=== PATIENT | female | born 1945 | race Hispanic/Latino ===

== ENCOUNTER 2020-02-22 14:38 | Inpatient (IN) | payer OTHER ==
[~2020-02-22] VITALS: Ht 162.6 cm; Wt 62.6 kg
[~2020-02-22 14:38] MED LIST: ALENDRONATE SOD70 MG PO; DIGOXIN125 MCG PO; FUROSEMIDE40 MG PO; GLYBURIDE2.5 MG PO; LISINOPRIL10 MG PO; LOVENOX40 MG/0.4 SQ; WARFARIN SODIUM5 MG PO
[2020-02-22] MEDS ORDERED: DILTIAZEM HCL 5 MG/ML 5 ML VIAL IV ONE (16:30)
[2020-02-22 16:46] LABS: BASOPHILS % 0.7 % (0.0-1.0); EOSINOPHILS # (AUTO) 0.2 (0.0-0.4); HEMATOCRIT 23.3 % (34.2-44.1); HEMOGLOBIN 7.3 g/dL (12.0-16.0); LYMPHOCYTES # (AUTO) 0.7 (1.0-3.2); LYMPHOCYTES % 15.2 % (18.0-39.1); MEAN CORPUSCULAR HEMOGLOBIN 29.8 pg (28-32); MEAN CORPUSCULAR HGB CONC 31.3 g/dL (31-35); MEAN CORPUSCULAR VOLUME 95.1 fL (81-99); MONOCYTES # (AUTO) 0.5 (0.2-0.8); MONOCYTES % 10.8 % (4.4-11.3); NEUTROPHILS # (AUTO) 3.1 (2.1-6.9); NEUTROPHILS % 68.9 % (38.7-80.0); PLATELET COUNT 277 x10e3/uL (140-360); RED BLOOD COUNT 2.45 x10e6/uL (3.6-5.1)
[2020-02-22 16:53] LABS: ALBUMIN 3.7 g/dL (3.5-5.0); ALBUMIN/GLOBULIN RATIO 0.9 (0.8-2.0); ANION GAP 14.5 mmol/L (8-16); CALCIUM 9.6 mg/dL (8.4-10.2); CREATININE, SERUM 1.51 mg/dL (0.57-1.11); POTASSIUM 4.5 mmol/L (3.5-5.1)
[2020-02-22 17:22] LABS: PROTHROMBIN TIME 96.1 seconds (11.9-14.5)
[2020-02-22 17:23] LABS: INR 11.2
[2020-02-22] MEDS ORDERED: PHYTONADIONE 10 MG/ML AMP SQ ONE (17:30)
--- NOTE | 2020-02-22 18:04 | Emergency Department Note ---
History of Present Illnes History of Present Illness Chief Complaint: General Medicine Complaints History of Present Illness This is a 74 year old female . Chief Complaint Comment went to see pcp who did lab work and told her that her pt/inr was 9 and her blood was thin and sent pt to er for further eval pt c/o swelling to right lower leg presents with +1 edema to right lowre leg pedal pulse palpable and c/o pain to left lower back unknown origing denies dysuria/hematuria during triage pt hr goes between 120-150's ekg done shows a fib rvr md made aware seen by dr vera Historian: Patient Arrival Mode: Car Onset (how long ago): unknown Severity: mild Onset quality: unable to specify Duration (how long): day(s) Timing of current episode: constant Progression: other Chronicity: new Relieving factors: none Exacerbating factors: none Past Medical/Family History Physician Review I have reviewed the patient's past medical and family history. Any updates have been documented here. Past Medical History Recent Fever: No Clinical Suspicion of Infectio: No New/Unexplained Change in Ment: No Past Medical History: Hypertension, A-Fib Other Medical History: cirrhosis Past Surgical History: Pacer/AICD Social History Smoking Cessation: Never Smoker Counseling Performed: No Alcohol Use: None Any Illegal Drug Use: No Other Any Pre-Existing Lines (PICC,: No Review of Systems Review of Systems Constitutional: Reports as per HPI EENTM: Reports no symptoms Cardiovascular: Reports as per HPI, Reports chest pain Respiratory: Reports no symptoms Gastrointestinal: Reports no symptoms Genitourinary: Reports no symptoms Musculoskeletal: Reports no symptoms Integumentary: Reports no symptoms Neurological: Reports no symptoms Psychological: Reports no symptoms Endocrine: Reports no symptoms Hematological/Lymphatic: Reports no symptoms Physical Exam Related Data Allergies: Coded Allergies: No Known Allergies (Unverified , 08/31/12) Triage Vital Signs Vital Signs Date Time Temp Pulse Resp B/P (MAP) Pulse Ox O2 Delivery O2 Flow Rate FiO2 02/22/20 15:05 98.2 123 18 135/84 99 Room Air Vital signs reviewed: Yes Physical Exam CONSTITUTIONAL Constitutional: Present well-developed, Present well-nourished, Present obese HENT HENT: Present normocephalic, Present atraumatic, Present oropharynx clear/moist, Present nose normal HENT L/R: Present left ext ear normal, Present right ext ear normal EYES Eyes: Reports PERRL, Reports conjunctivae normal NECK Neck: Present ROM normal PULMONARY Pulmonary: Present effort normal, Present breath sounds normal CARDIOVASCULAR Cardiovascular: Present regular rhythm, Present heart sounds normal, Present capillary refill normal, Present normal rate GASTROINTESTINAL Abdominal: Present soft, Present nontender, Present bowel sounds normal GENITOURINARY Genitourinary: Present exam deferred SKIN Skin: Present warm, Present dry MUSCULOSKELETAL Musculoskeletal: Present ROM normal NEUROLOGICAL Neurological: Present alert, Present oriented x 3, Present no gross motor or sensory deficits PSYCHOLOGICAL Psychological: Present mood/affect normal, Present judgement normal Results Laboratory Result Diagram: 02/22/20 1530 02/22/20 1530 Laboratory Laboratory Tests Test 02/22/20 15:30 White Blood Count 4.46 x10e3/uL (4.8-10.8) Red Blood Count 2.45 x10e6/uL (3.6-5.1) Hemoglobin 7.3 g/dL (12.0-16.0) Hematocrit 23.3 % (34.2-44.1) Mean Corpuscular Volume 95.1 fL (81-99) Mean Corpuscular Hemoglobin 29.8 pg (28-32) Mean Corpuscular Hemoglobin Concent 31.3 g/dL (31-35) Red Cell Distribution Width 13.0 % (11.7-14.4) Platelet Count 277 x10e3/uL (140-360) Neutrophils (%) (Auto) 68.9 % (38.7-80.0) Lymphocytes (%) (Auto) 15.2 % (18.0-39.1) Monocytes (%) (Auto) 10.8 % (4.4-11.3) Eosinophils (%) (Auto) 4.0 % (0.0-6.0) Basophils (%) (Auto) 0.7 % (0.0-1.0) Neutrophils # (Auto) 3.1 (2.1-6.9) Lymphocytes # (Auto) 0.7 (1.0-3.2) Monocytes # (Auto) 0.5 (0.2-0.8) Eosinophils # (Auto) 0.2 (0.0-0.4) Basophils # (Auto) 0.0 (0.0-0.1) Absolute Immature Granulocyte (auto 0.02 x10e3/uL (0-0.1) Prothrombin Time 96.1 seconds (11.9-14.5) Prothromb Time International Ratio 11.20 Sodium Level 136 mmol/L (136-145) Potassium Level 4.5 mmol/L (3.5-5.1) Chloride Level 101 mmol/L (98-107) Carbon Dioxide Level 25 mmol/L (22-29) Anion Gap 14.5 mmol/L (8-16) Blood Urea Nitrogen 33 mg/dL (7-26) Creatinine 1.51 mg/dL (0.57-1.11) Estimat Glomerular Filtration Rate 34 ML/MIN (60-) BUN/Creatinine Ratio 22 (6-25) Glucose Level 95 mg/dL (74-118) Calcium Level 9.6 mg/dL (8.4-10.2) Total Bilirubin 0.6 mg/dL (0.2-1.2) Aspartate Amino Transf (AST/SGOT) 19 IU/L (5-34) Alanine Aminotransferase (ALT/SGPT) 14 IU/L (0-55) Alkaline Phosphatase 141 IU/L (40-150) Total Protein 7.6 g/dL (6.5-8.1) Albumin 3.7 g/dL (3.5-5.0) Globulin 3.9 g/dL (2.3-3.5) Albumin/Globulin Ratio 0.9 (0.8-2.0) Lab results reviewed: Yes Imaging Imaging results reviewed: Yes Procedures 12 Lead ECG Interpretation ECG Interpretation : ECG: ECG 1 Prior ECG tracings: reviewed Rhythm: atrial fibrillation QRS axis: normal ST segments normal: Yes Clinical Impression: abnormal ECG Critical Care Time Total Critical Care Time (min): 65 Critical care time exclusive o: separately billable procedures Critcal care necessary due to: metabolic failure, other (supratherapeutic INR) Assessment & Plan Medical Decision Making MDM 74-year-old female brought to the ED with elevated INR, patient's INR around 11, hemoglobin low, vitamin K and FFP given. Patient required hospital admission for further workup and management. Assessment & Plan Final Impression: (1) Thrombocytopenia (2) Supratherapeutic INR Depart Disposition: ADMITTED Last Vital Signs Date Time Temp Pulse Resp B/P (MAP) Pulse Ox O2 Delivery O2 Flow Rate FiO2 7/30/20 17:47 78 16 142/81 99 Room Air 02/22/20 15:05 98.2 Home Meds Reported Medications Enoxaparin Sodium (LOVENOX) 40 Mg/0.4 Ml Inj, 40 MG SQ BID 09/01/12 Warfarin Sodium (COUMADIN) 5 Mg Tablet, 5 MG PO 08/31/12 Lisinopril (LISINOPRIL) 10 Mg Tablet, 10 MG PO DAILY 08/31/12 Glyburide (GLYBURIDE) 2.5 Mg Tablet, 2.5 MG PO DAILY 08/31/12 Furosemide (FUROSEMIDE) 40 Mg Tablet, 40 MG PO DAILY 08/31/12 Digoxin (DIGOXIN) 125 Mcg Tablet, 125 MCG PO DAILY 08/31/12 Alendronate Sodium (ALENDRONATE SODIUM) 70 Mg Tablet, 70 MG PO W 08/31/12 Medications in the ED Diltiazem HCl 20 mg ONCE ONCE IV Last administered on 02/22/20at 16:41; Admin Dose 20 MG; Start 02/22/20 at 16:30; Stop 02/22/20 at 16:31; Status DC Phytonadione 10 mg ONCE ONCE SQ Last administered on 02/22/20at 17:39; Admin Dose 10 MG; Start 02/22/20 at 17:30; Stop 02/22/20 at 17:31; Status DC JOSE ANGEL VERA DO Feb 22, 2020 18:04
--- NOTE | 2020-02-22 22:15 | NUR ---
PT SIGNED INFORMED CONSENT, DOCUMENT PLACED ON CHART.
[2020-02-22] MEDS ORDERED: FAMOTIDINE 20 MG/2 ML VIAL IV STA (23:07)
[2020-02-22] MEDS ORDERED: METOPROLOL TARTRATE INJ 1 MG/ML VIAL IV PRN (23:15)
[2020-02-22] MEDS ORDERED: DEXTROSE 50% SYRINGE 50 ML IV PRN (23:15)
[2020-02-22] MEDS ORDERED: DIGOXIN 0.125 MG TAB PO SCH (23:15)
[2020-02-22] MEDS ORDERED: HYDRALAZINE HCL 20 MG/ML VIAL IV PRN (23:15)
[2020-02-22] MEDS ORDERED: SODIUM CHLORIDE 0.9% 250ML 250 ML ONE (23:30)
[2020-02-23] VITALS (9 sets, daily range): BP systolic 118–139; BP diastolic 49–76
--- NOTE | 2020-02-23 00:01 | NUR ---
FIRST BAG FFP COMPLETED, PT TOLERATED WELL.
--- NOTE | 2020-02-23 01:16 | NUR ---
SECOND BAG COMPLETE, NAD.
--- NOTE | 2020-02-23 02:18 | NUR ---
Received patient via wheelchair from ER. AAOx4. Understands some [place] but prefers [place]. Resp. even and unlabored. Skin warm and dry to touch. IV to lt forearm 18g clean, dry and intact.Denies any pain/discomfort at this time.
[2020-02-23] MEDS ORDERED: BACTRIM DS TAB1 EACH PO (02:37)
[2020-02-23] MEDS ORDERED: SODIUM CHLORIDE 0.9% 250ML 250 ML ONE (04:12)
--- NOTE | 2020-02-23 07:00 | NUR ---
RECEIVED CHANGE OF SHIFT REPORT FROM SHOOK SPLICER RN. NOTED PLASMA INFUSION JUST COMPLETED. INFORMED BY RN PT TO RECEIVE ONE MORE BAG OF PLASMA. PT AWAKE, ALERT, NO SIGNS OF DISTRESS, AMBULATING TO BATHROOM WITHOUT DIFFICULTY. WILL CONTINUE TO MONITOR.
[2020-02-23] MEDS: INSULIN LISPRO 100 UNIT/1 ML 3ML VIAL SQ SCH ×4 (07:30→21:00)
[2020-02-23] MEDS ORDERED: FAMOTIDINE 20 MG/2 ML VIAL IV SCH (09:00)
[2020-02-23 09:02] LABS: BASOPHILS % 0.6 % (0.0-1.0); EOSINOPHILS # (AUTO) 0.2 (0.0-0.4); EOSINOPHILS % 4.8 % (0.0-6.0); LYMPHOCYTES # (AUTO) 0.4 (1.0-3.2); LYMPHOCYTES % 11.4 % (18.0-39.1); MEAN CORPUSCULAR HEMOGLOBIN 29.6 pg (28-32); MEAN CORPUSCULAR HGB CONC 31.1 g/dL (31-35); MEAN CORPUSCULAR VOLUME 95.4 fL (81-99); MONOCYTES # (AUTO) 0.4 (0.2-0.8); MONOCYTES % 12.6 % (4.4-11.3); NEUTROPHILS # (AUTO) 2.4 (2.1-6.9); NEUTROPHILS % 70.3 % (38.7-80.0); PLATELET COUNT 211 x10e3/uL (140-360); RED BLOOD COUNT 2.16 x10e6/uL (3.6-5.1); RED CELL DISTRIBUTION WIDTH 13.1 % (11.7-14.4)
[2020-02-23 09:25] LABS: ALBUMIN 3.5 g/dL (3.5-5.0); ALBUMIN/GLOBULIN RATIO 0.9 (0.8-2.0); ANION GAP 13.4 mmol/L (8-16); CALCIUM 9.4 mg/dL (8.4-10.2); CREATININE, SERUM 1.4 mg/dL (0.57-1.11); HEMATOCRIT 20.6 % (34.2-44.1); HEMOGLOBIN 6.4 g/dL (12.0-16.0); POTASSIUM 4.4 mmol/L (3.5-5.1)
--- NOTE | 2020-02-23 09:31 | NUR ---
spoke with Dr. Weeks regarding critical value of Hgb at 6.4; no new orders received. Dr. Weeks states he will come examine the pt. will continue to monitor.
[2020-02-23] MEDS: FUROSEMIDE 40 MG TAB PO SCH (09:33)
[2020-02-23] MEDS: DIGOXIN 0.125 MG TAB PO SCH (09:33)
[2020-02-23 10:12] LABS: THYROID STIMULATING HORMONE 1.104 uIU/mL (0.350-4.940)
[2020-02-23] MEDS ORDERED: ACETAMINOPHEN 325 MG TAB PO ONE (11:10)
[2020-02-23] MEDS ORDERED: SODIUM CHLORIDE 0.9% 250ML 250 ML IV ONE (11:15)
--- NOTE | 2020-02-23 11:19 | History and Physical ---
PRIMARY CARE PHYSICIAN: Molina Mccall MD. CHIEF COMPLAINT: Supratherapeutic INR level of 11.2. Melena. Upper GI bleed. HISTORY OF PRESENT ILLNESS: The patient is a 74-year-old female with atrial fibrillation, on warfarin 5 mg daily. Apparently, her INR is very elevated, came to the hospital after primary care physician checked the blood work. Her INR is 11.2. The patient does have melena. Her hemoglobin and hematocrit were 7.3 and 23.3. They came down to 6.4 and 20.6 today. The patient is otherwise stable. She does not have increasing shortness of breath at this time. Does have some palpitation, but otherwise stable. The patient did receive her FFP. She is pending for blood transfusion. Her manager pricing is Dr. Glass. PAST MEDICAL HISTORY: Atrial fibrillation, hypertension, anticoagulant therapy, diabetes type 2, dyslipidemia, osteoporosis, and recent right lower extremity cellulitis, started on Bactrim. ALLERGIES: NO KNOWN ALLERGIES. PHYSICAL EXAMINATION: VITAL SIGNS: Temperature is 97, blood pressure 133/70, pulse rate is 77, respirations 18. GENERAL: The patient is not in acute distress, awake. HEENT: Normocephalic, atraumatic. Anicteric. NECK: Supple grossly. PULMONARY: Diminished breath sounds. CARDIOVASCULAR: Atrial fibrillation, rate control. ABDOMEN: Soft. EXTREMITIES: No cyanosis or edema. NEUROLOGIC: No focal deficit. LABORATORY DATA: Hemoglobin and hematocrit of 6.4 and 20.6. Platelet is 211. Chemistry panel, BUN and creatinine of 29 and 1.4. Sodium is 140, potassium 4.4, chloride 103, bicarb 28. ASSESSMENT AND PLAN: 1. Melena secondary to supratherapeutic INR. 2. Upper GI bleed as mentioned above. 3. Acute blood loss anemia. 4. Atrial fibrillation, on anticoagulant therapy. 5. Hypertension. 6. Dyslipidemia. 7. Diabetes type 2. PLAN: Consultation with Dr. Glass, Cardiology. Consultation with Dr. Vincent GI. Give the patient 2 units of blood. Repeat lab work. Repeat INR. The patient already did receive FFP. We will place the patient on PPI. We will monitor the patient closely at this time. Resume other home medication except for antibiotics. We will place the patient on NSAID instead. MD CHENTE Rubio/GASPER /[id number]
[2020-02-23] MEDS: PANTOPRAZOLE 40 MG 10ML VIAL IV SCH ×2 (11:54→19:11)
--- NOTE | 2020-02-23 13:30 | NUR ---
PLASMA INFUSION STARTED. VERIFIED BY ALEJANDRA JEFFERSON. WILL CONTINUE TO MONITOR.
--- NOTE | 2020-02-23 14:42 | NUR ---
PLASMA INFUSION COMPLETE. PT TOLERATED WELL.
--- NOTE | 2020-02-23 16:15 | NUR ---
TRANSFUSION OF RBC'S INITIATED. PT AWAKE, ALERT, NO SIGNS OF DISTRESS, NO COMPLAINTS AT THIS TIME. WILL CONTINUE TO MONITOR.
--- NOTE | 2020-02-23 18:40 | NUR ---
1ST TRANSFUSION OF PACKED RBC'S COMPLETE. PT TOLERATED WELL.
--- NOTE | 2020-02-23 19:00 | NUR ---
CHANGE OF SHIFT REPORT GIVEN TO PM NURSE. PT AWAKE, ALERT, EATING DINNER, NO COMPLAINTS AT THIS TIME. INFORMED ONCOMING NURSE OF NEED FOR 2ND UNIT TO BE TRANSFUSED.
[2020-02-23] MEDS: FUROSEMIDE INJ 10 MG/ML 2 ML VIAL IV PRN (19:11)
--- OUTSIDE RECORDS SUMMARY | 2020-02-23 20:54 | XMS REPORT | Continuity of Care Document ---
Author Author [facility] t Organization [facility] Address [address] [place] [address] Phone Unavailable Care Team Providers Care Business Objects Analyst Name Role Phone Nadira VILLEGAS, Vasyl Attphys Roge VILLEGAS, Alex Attphys Ad [facility] Attphys Zelda Light MD, Augie Attphys Nurys VILLEGAS, Jackie Admphys Problems This patient has no known problems. Allergies, Adverse Reactions, Alerts This patient has no known allergies or adverse reactions. Medications This patient has no known medications. Procedures This patient has no known procedures. Encounters Start Date/Time End Date/[facility] ID Source 2019-11-29 08:13:00 2019-11-30 14:11:00 Hospital Encounter Vasyl Waddell [facility] ([facility]) [id number] 2019-11-29 08:25:00 2019-11-29 23:59:00 [facility] [id number] 2019-11-29 00:00:00 2019-11-29 00:00:00 Telephone Augie Villalta [facility] ([facility]) [id number] Results Test Description Test Time Test Comments Results Result Comments Source BREAST ULTRASOUND BILATERAL 2018-12-12 14:15:57 - BREAST ULTRASOUND BILATERALULTRASOUND OF BOTH BREASTS AND BOTH AXILLA: 12/12/2018CLINICAL: Abnormal mammogram. Comparison is made to exams dated 12/12/2018 mammogram, 11/21/2018 mammogram, 11/19/2017 mammogram, and 07/16/2016 mammogram - [facility]-. Real-time ultrasound of both breasts and both axilla and clinical breast exam was performed. No abnormalities were seen sonographically in either breast or either axilla. Clinical breast exam was unremarkable.IMPRESSION: NEGATIVE There is no sonographic evidence of malignancy. Resume annual screening mammography in one year. Carla Mcnamara M.D. dm/:12/12/2018 14:15:57 Entry: - 12/14/2018 11:32:20Imaging Technologist: Shana PADILLA, [facility]-letter sent: BIRADS 1-2 Combo FU Letter Ultrasound BI-RADS: 1 Negative DIAG MAMM RIGHT FARA CAD DIGITAL 2018-12-12 13:33:41 - DIAG MAMM RIGHT FARA CAD DIGITALUNILATERAL RIGHT DIGITAL DIAGNOSTIC MAMMOGRAM 3D/2D WITH CAD: 12/12/2018CLINICAL: Abnormal Mammogram. Digital breast tomosynthesis was performed in addition to routine CC and MLO views. Current mammographic images were evaluated by either a [employer] M-Vu or a [employer] ImageChecker CAD (computer aided detection system). Comparison is made to exams dated 11/21/2018 mamm ogram, 11/19/2017 mammogram, and 07/16/2016 mammogram - [facility]- . There are scattered fibroglandular tissues in the right breast. The architectural distortion in the right breast at 10 o'clock is due to a scar from a previous excisional biopsy. No other significant masses or calcifications are seen in the breast. IMPRESSION: BENIGNUltrasound pending for additional evaluation. Carla Mcnamara M.D. dm/:12/12/2018 13:33:41 Entry: - 12/14/2018 11:31:29Imaging Technologist: Nicolasa PADILLA, [facility]-Mammogram BI-RADS: 2 Benign SCR MAMM BILATERAL FARA CAD DIGITAL 2018-11-22 11:39:55 - SCR MAMM BILATERAL FARA CAD DIGITALBILATERAL DIGITAL SCREENING MAMMOGRAM 3D/2D WITH CAD: 11/21/2018CLINICAL: Asymptomatic. Digital breast tomosynthesis was performed in addition to routine CC and MLO views. Current mammographic images were evaluated by either a [employer] M-Vu or a [employer]And[employer] ImageRotation Medicaler CAD (computer aided detection system). Comparison is made to exams dated 11/19/2017 mammogram, 06/26 mammogram - [facility]-, and 05/27/2015 mammogram - Unknown Outside Facility. There are scattered fibroglandular tissues in both breasts. There is right breast questionable architectural distortion on the CC view laterally at middle depth at a distance of 6 cm from the nipple (CC slice 21).No other suspicious mass, architectural distortion, malignant type calcification, or lymph node abnormality detected. IMPRESSION: INCOMPLETE ASSESSMENT: ADDITIONAL IMAGING EVALUATION RECOMMENDEDRIGHT BREAST questionable architectural distortion on the CC view laterally at middle depth at a distance of 6 cm from the nipple (CC slice 21). Tomosynthesis spot compression and possible ultrasound are recommended at this time.Ken Lynn M.D. qn/:11/22/2018 11:39:55 Hearse Driver: Tracy PADILLA, [facility]- letter sent: Additional Imaging Mammogram BI-RADS: 0 Indeterminate
--- OUTSIDE RECORDS SUMMARY | 2020-02-23 20:54 | XMS REPORT | Summary of Care ---
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 Suspended lisinopril 20 mg tablet Take 20 mg by 0 mouth daily. 0 Suspended lovastatin 20 mg tablet 0 0 Suspended warfarin 5 mg tablet 0 0 Suspended alendronate 70 mg tablet Take 70 mg by 0 mouth weekly. Suspended omeprazole 40 mg capsule Take 40 mg by 0 mouth daily. documented as of this encounter (statuses as of 11/30/2019) Active Problems No known active problemsdocumented as of this encounter (statuses as of 11/30/2019) Social History Date Tobacco Use Types Packs/Day Years Used Never Assessed Financial Resource Strain Answer Date Recorde d How hard is it for you to pay for the very basics Not very hard 11/29/2019 like food, housing, medical care, and h eating? Food Insecurity Answer Date Recorded Within the past 12 months, you worried that your Never belen e 11/29/2019 food would run out before you got money to buy more. Within the past 12 months, the food you bought Never true 11/29/2019 just didn't last and you didn't have mo darius to get more. Transportation Needs Answer Date Recorded In the past 12 months, has lack of transportation No 11/29/2019 kept you from medical appointments or f rom getting medications? In the past 12 months, has lack of transportation No 11/29/2019 kept you from meetings, work, or gettin g things needed for daily living? Sex Assigned at Date Recorded Not on file Industry Job Start Date Occupation Not on file Not on file Not on file Travel End Travel History Travel Start No recent travel history available. Date Recorded COVID-19 Exposure Response 11/29/2019 6:25 AM CDT In the last month, have you been in contact with No / Unsure someone who was confirmed or suspected to have Coronavirus / COVID-19? documented as of this encounter Last Filed Vital Signs Not on filedocumented in this encounter Plan of Treatment Health Maintenance Due Date Last Done Comments DTaP,Tdap,and Td Vaccines 12/23/1956 (1 - Tdap) Breast Cancer Screening 1983 (MAMMOGRAM) COLONOSCOPY 12/23/1993 Zoster Recombinant 12/23/1993 Vaccine (SHINGRIX) (1 of 2) Medicare Wellness Visit 12/23/2008 Osteoporosis Screening 12/23/2008 PNEUMOCOCCAL VACCINES 65+ 12/23/2008 (1 of 2 - PCV13) INFLUENZA VACCINE (Season 03/26/2020 Ended) documented as of this encounter Implants Device Identifier Shelf Expiration Date Model / Serial / L ot Implanted Type Area Manufactur er Pacemaker-11/29/2019 PACEMAKER Left: Chest Implanted: 11/29/2019 (Quantity not on file) documented as of this encounter Procedures Comments Procedure Name Priority Date/Time Associated Diag nosis XR CHEST 1 VW STAT 11/29/2019 Status post jono cement of 9:19 AM CDT cardiac pacemaker documented in this encounter Results * CHEST 1 VIEW (11/29/2019 9:19 AM CDT) Specimen Impressions Performed At No acute intrathoracic abnormality. PACS/VR/DOSE No pneumothorax or pleural effusion. Narrative Performed At PROCEDURE: XR CHEST 1 VW PACS/VR/DOSE CLINICAL INDICATION: r/o pneumothorax P atient in cath recovery COMPARISON: None FINDINGS: Left single lead cardiac pacing device in place. The lungs are clear, partial expanded w ith mild perihilar congestion. No pleural effusion or pneumothorax is seen. The cardiac silhouette is enlarged. No acute bony abnormality. Medial jimenez otomy wires. Bones are osteopenic. Procedure Note [facility], Radiant Results Inft User - 11/29/2019 9:30 AM CDT PROCEDURE: XR CHEST 1 VW CLINICAL INDICATION: r/o pneumothorax Patient in cath recovery COMPARISON: None FINDINGS: Left single lead cardiac pacing device in place. The lungs are clear, partial expanded with mild perihilar congestion. No pleural effusion or pneumothorax is seen. The cardiac silhouette is enlarged. No acute bony abnormality. Medial sternotomy wires. Bones are osteopenic. IMPRESSION No acute intrathoracic abnormality. No pneumothorax or pleural effusion. Performing Organization Address City/State/Zipcode Ph one Number PACS/VR/DOSE documented in this encounter Insurance Type Payer Benefit Subscriber ID Effective Phone Address Plan / Dates Group Medicare Adv HMO [employer] [place] [employer] [employer] [id number] 2019- [place] CLASSIC/[place] documented as of this encounter
--- OUTSIDE RECORDS SUMMARY | 2020-02-23 20:54 | XMS REPORT | Summary of Care ---
Author Author [facility] - Health Organization [facility] - Health Address Unknown Phone Unavailable Care Team Providers Care Counter Intelligence Agent Name Role Phone Molina Mccall PCP Reason for Visit * Reason Comments Results Encounter Details Care Team Description Date [place] [address] [facility] [address], [place] [id number] Results 11/29/2019 Telephone [facility] [address] [place] [address] Allergies No Known Allergiesdocumented as of this encounter (statuses as of 11/29/2019) Medications End Date Status Medication Sig Dispensed [...] as of this encounter (statuses as of 11/29/2019) Active Problems No known active problemsdocumented as of this encounter (statuses as of 11/29/2019) Social History Date Tobacco Use Types Packs/Day Years Used Never Assessed Sex Assigned at Date Recorded Not on [...] 03/26/2020 Ended) documented as of this encounter Results Not on filedocumented in this encounter Insurance Type Payer Benefit Subscriber ID Effective Phone Address Plan / Dates Group Medicare Adv HMO [employer] [place] [employer] [employer] [id number] 2019- [place] Present CLASSIC/[place] LUE documented as of this encounter
--- OUTSIDE RECORDS SUMMARY | 2020-02-23 20:54 | XMS REPORT | Summary of Care ---
Author Author [facility] - Health Organization [facility] - Health Address Unknown Phone Unavailable Care Team Providers Care Special Library Librarian Name Role Phone Alysha Mccall PCP Reason for Referral * (Routine) Referred By Contact Referred To Contact Status Reason Specialty Diagnoses / [place] [address] [facility] [address] [place] [address] Pending Review IM-CARDIOVASCULA Diagnoses R DISEASE Coronary artery disease with angina pectoris, unspecified vessel or lesion type, unspecified whether northwestern shoshone or transplanted heart P rocedures Discharge Follow-Up: Specialty Service IM-CARDIOVASCULAR DISEASE; 2 Weeks * (Routine) Referred By Contact Referred To Contact Status Reason Specialty Diagnoses / Procedures Patria Farah, [facility] [address] [facility] [address] [place] [address] Alysha Mccall [address] [place] [address] Pending Review Diagnoses Coronary artery disease with angina pectoris, unspecified vessel or lesion type, unspecified whether northwestern shoshone or transplanted heart P rocedures Discharge Follow-up: PCP ALYSHA MCCALL; 1 Week * Radiology Services (STAT) Referred By Contact Referred To Contact Status Reason Specialty Diagnoses / Procedures Del Duong FNP [address] [place] [id number] New Request Diagnostic Diagnoses Radiology Status post placement of cardiac pacemaker P rocedures CHEST 1 VIEW Reason for Visit * Auth/Cert Referred By Contact Referred To Contact Status Reason Specialty Diagnoses / Procedures [facility] [address] [place] [address] Medicine - Diagnoses Inpatient only Coronary artery disease with angina pectoris, unspecified vessel or lesion type, unspecified whether northwestern shoshone or transplanted heart Status post placement of cardiac pacemaker I42.0 Procedures AL INS NEW/RPLCMT PRM PACEMAKR W/TRANS ELTRD ATRIAL Encounter Details Care Team Description Date Type Department Vasyl Waddell MD [address] [place], [place] [id number] [place] [address] [facility] [address] [place] [address] [phone] [place] [address] [place] [address] [phone] 1, [facility] Cardiac Proc Room Jackie Nuno MD [address] [place] [address] [phone] Coronary artery disease with angina pect trini, unspecified vessel or lesion type, unspecified whether northwestern shoshone or transplanted heart 11/29/2019 [facility] - Encounter Medicine/Surgery CL C 6A 11/30/2019 [address] [place] [address] Allergies No Known Allergiesdocumented as of this encounter (statuses as of 11/30/2019) Medications End Date Status Medication Sig Dispensed Refills Start Date Active furosemide 40 mg tablet Take 40 mg by 0 mouth. Active lisinopril 20 mg tablet Take 20 mg by 0 mouth daily. 0 Active lovastatin 20 mg tablet 0 0 Active warfarin 5 mg tablet 0 0 Active alendronate 70 mg tablet Take 70 mg by 0 mouth weekly. Active omeprazole 40 mg capsule Take 40 mg by 0 mouth daily. 12/04/2019 Active minocycline 100 mg Take 1 8 capsule 0 02 capsuleIndications: capsule by 0 Coronary artery disease mouth every with angina pectoris, 12 (twelve) unspecified vessel or hours for 4 lesion type, unspecified days. whether northwestern shoshone or transplanted heart documented as of this encounter (statuses as [...] of this encounter Last Filed Vital Signs Reading Time Taken Comments Vital Sign 129/60 11/30/2019 11:00 AM CDT Blood Pressure 78 11/30/2019 11:00 AM CDT Pulse 36.4 C (97.6 F) 11/30/2019 11:00 AM CDT Temperature 18 11/30/2019 11:00 AM CDT Respiratory Rate 100% 11/30/2019 11:00 AM CDT Oxygen Saturation - - Inhaled Oxygen Concentration 54.4 kg (120 lb) 11/29/2019 6:25 AM CDT Weight 157.5 cm (5' 2") 11/29/2019 6:25 AM CDT Height 21.95 11/29/2019 6:25 AM CDT Body Mass Index documented in this encounter Discharge Instructions * Appointments* Mckenzie Diaz - 11/30/2019 12:05 PM CDT Patient's daughter Bindu will scheduled the patient follow up appointment. * Attachments The following attachments cannot be sent through Care Everywhere.* Minocycline tablets or capsules (Australian) * Eating Heart-Healthy Foods (Australian) * Pacemaker Implantation, Discharge Instructions for (Australian) * Pacemaker, Living with (Australian) * [facility] A Patient's Guide to Using Warfarin (Coumadin) (Australian) documented in this encounter Progress Notes * Melinda Rosales RN - 11/29/2019 5:08 PM CDT Care Management Social Functional Assessment Patient Name: Milla Rajan Age: [age] year old Sex: female Previous admit date: N/A Current diagnosis and co-morbidities: Coronary artery disease with angina pectoris, unspecified vessel or lesion type, unspecified whether northwestern shoshone or transplanted heart [I25.119] Status post placement of cardiac pacemaker [Z95.0] Readmission Questions: Was patient discharged from any acute care hospital within the last 30 days: No Social Functional Assessment: Primary language spoken/preferred: Australian Mental Status: Alert & Oriented to Person,Place & Time Information given by: Terri Rajan (DIL) Patient's support system: Spouse Name and number of support system: YESSY MARC Spouse [phone]; BINDU MEHTA Child [phone] Primary First Mate: Self;Same as Support System MPOA: No;Same as support system Living Arrangement: Home Address of living arrangement : [address] [place] [id number] Persons living in home: Self;Same as support system Barriers to returning home: None Baseline functional status- ambulation: Independent Functional status-baseline personal care: Independent Baseline functional status- driving: Dependent Baseline functional status- grocery shopping: Independent Functional status-baseline housekeeping: Independent Functional status-baseline meal prep: Independent Current functional status same as prior: Yes Do you have a PCP?: Yes Name of PCP: Alysha Mccall Home Health Care Agency: No Provider Services: No DME Company: No Equipment: None Hemodialysis: No Community resources utilized: None Prescription coverage plan: [facility]: Other Other pharmacy: [facility] Anticipated services prior to disharge: MIBI/Cardiac Cath Expected mode of discharge transportation: Same as support system Additional Recommendations for DC: Independent. Lives with spouse. NHas adequate family support. Additional info required for discharge planning: No needs identified Recommended discharge plan: Home Any issues or concerns with obtaining/affording your medications at home: no. Are you or your support system able to mushroom picker medications at discharge: yes. D escribe: spouse. SFA Complete: Social Functional Assessment complete: Yes Alcohol Use Screening (AUDIT-C) How often do you have a drink containing alcohol?: Never SCORE: 0 Role of Care Management explained. Melinda Rosales RN, BSN, ACM-RN Machine Accountant [email or web address] * Del Duong FNP - 11/29/2019 8:13 AM CDT Preliminary Electrophysiology Procedure Report Date of Service: 11/29/2019 Sheet Sorter: Augie Coyle MD Indication/Diagnosis: symptomatic bradycardia Consent type: elective procedure and indications/complications discussed; genaro wyatt consent obtained Time out completed: Yes Aseptic technique: Chloroprep Procedures: Single lead insertion, PM placement Local Anesthesia: 1% lidocaine without epinephrine Sedation: Fentanyl & Versed, see EPIC moderate sedation Access site: Left Subclavian Vein Closure Method: Sutured Sterile dressing: yes Complications: None Estimated Blood Loss: <10 cc Specimens Removed: None Impression: Successful single chamber pacemaker insertion to left side with [place] [employer] device Plan: Admit to telemetry; anticipated discharge date tomorrow Do not lift affected arm above level of shoulder x 6 weeks; sling to arm 2 grams Ancef in 12 hours, then Minocycline 100 mg BID x 5 days Keep pressure dressing x 1 week Stat portable CXR post procedure Resume home meds except if on metformin, hold for 48 hours; hold warfarin until tomorrow Device interrogation tomorrow by dealer compliance representative F/u with Dr. Coyle in 2 weeks Full report to follow. Case discussed with Dr. Coyle. documented in this encounter Plan of Treatment Health [...] cement of 9:19 AM CDT cardiac pacemaker CATH PROCEDURE LOG Routine 11/29/2019 7:55 AM CDT CORONAVIRUS COVID-19 STAT 11/29/2019 Coronary artery disease TESTING 5:52 AM CDT with angina pectori s, unspecified vessel or lesion type, unspecified whether northwestern shoshone or transplanted heart CBC WITH DIFFERENTIAL Routine 11/29/2019 Coronary artery disease 5:52 AM CDT with angina pectoris, unspecified vessel or lesion type, unspecified whether northwestern shoshone or transplanted heart PROTHROMBIN TIME / INR Routine 11/29/2019 Coronar y artery disease 5:52 AM CDT with angina pectoris, unspecified vessel or lesion type, unspecified whether northwestern shoshone or transplanted heart CBC WITH DIFFERENTIAL Routine 11/29/2019 Coronary artery disease 5:52 AM CDT with angina pectoris, unspecified vessel or lesion type, unspecified whether northwestern shoshone or transplanted heart BASIC METABOLIC PANEL Routine 11/29/2019 Coronary artery disease (NA, K, CL, CO2, GLUCOSE, 5:52 AM CDT with angina pectoris, BUN, CREATININE, CA) unspecified vessel or lesion type, unspecified whether northwestern shoshone or transplanted heart documented in this encounter Results * CHEST [...] otomy wires. Bones are osteopenic. Procedure Note [facility], Radiant Results Inft User - 11/29/2019 9:30 [...] Organization Address City/State/Zipcode Ph one Number PACS/VR/DOSE * CBC WITH DIFFERENTIAL (11/29/2019 5:52 AM CDT) WBC 3.66 (L) 4.30 - 11.10 [facility]ORY 10*3/L [facility] RBC 3.13 (L) 3.93 - 5.25 10*6/L [facility] HGB 10.0 (L) 11.6 - 15.0 g/dL [facility] HCT 30.5 (L) 35.7 - 45.2 % [facility] MCV 97.4 (H) 80.6 - 95.5 fL [facility] MCH 31.9 25.9 - 32.8 pg [facility] MCHC 32.8 31.6 - 35.1 g/dL [facility] RDW-SD 51.8 (H) 39.0 - 49.9 fL [facility] RDW-CV 14.6 12.0 - 15.5 % [facility] PLT 141 (L) 166 - 358 10*3/L [facility]A T[facility] MPV 10.6 9.5 - 12.9 fL [facility] NRBC/100 WBC 0.0 0.0 - 10.0 /100 WBCs [facility] LABO RATORY [facility] NRBC x10^3 <0.01 10*3/L [facility] GRAN MAT (NEUT) 48.3 % [facility] LABORATOR Y % [facility] IMM GRAN % 0.30 % [facility] LYMPH % 27.9 % [facility] MONO % 12.0 % [facility] EOS % 10.7 % [facility] BASO % 0.8 % [facility] GRAN MAT 1.77 (L) 1.88 - 7.09 10*3/uL [facility] AT[facility] x10^3(ANC) [facility] IMM GRAN x10^3 <0.03 0.00 - 0.06 10*3/uL [facility] LYMPH x10^3 1.02 (L) 1.32 - 3.29 10*3/uL [facility] MONO x10^3 0.44 0.33 - 0.92 10*3/uL [facility] EOS x10^3 0.39 0.03 - 0.39 10*3/uL [facility] BASO x10^3 0.03 0.01 - 0.07 10*3/uL [facility] Specimen Blood Performing Organization Address City/State/Zipcode Ph one Number [facility] CLIA: [id number], [address] [place], [place] [address] [facility] * BASIC METABOLIC PANEL (NA, K, CL, CO2, GLUCOSE, BUN, CREATININE, CA) (11/29/2019 5:52 AM CDT) NA 137 135 - 145 mmol/L [facility] K 4.3 3.5 - 5.0 mmol/L [facility] CL 102 98 - 108 mmol/L [facility] LABORATOR Y [facility] CO2 TOTAL 27 23 - 31 mmol/L [facility] AGAP 8 2 - 16 [facility] BUN 61 (H) 7 - 23 mg/dL [facility] GLUCOSE 105 70 - 110 mg/dL [facility] CREATININE 1.39 (H) 0.50 - 1.04 mg/dL [facility]AT OR[facility] CALCIUM 9.9 8.6 - 10.6 mg/dL [facility] RY [facility] eGFR 37.0 mL/min/1.73m2 [facility] Calculation SERVICES-CLEAR (Non-[facility] [place]) eGFR 44.8 mL/min/1.73m2 [facility] Calculation SERVICESCLEAR ([facility] [place]) Specimen Blood Narrative Performed At Association of Glomerular Filtration Rate (GFR) and S taging of Kidney Disease* [facility] + + +------ + [facility] | GFR (mL/min/1.73 m2) | With Kidney Damage | [facility] Kidney Damage [place] + + -------+ + | >90 | S tage one | Normal + + -------+ + | 60-89 | St age two | Decreased GFR + + -------+ + | 30-59 | St age three | Stage three + + -------+ + | 15-29 | St age four | Stage four + + -------+ + | <15 (or dialysis) | Stage fi ve | Stage five + + -------+ + *Each stage assumes the associated GFR level has been in effect for at least three months. Stages 1 to 5, with or without kidney disease, indicate chronic kidney disease. Notes: Determination of stages one and two (with eGFR >59mL/min/1.73 m2) requires estimation of kidney damage fo r at least three months as defined by structural or functional abnormalities of the kidney, manifested by either: Pathological abnormalities or Markers o f kidney damage (including abnormalities in the composition of the blood or urin e or abnormalities in imaging tests). Performing Organization Address City/State/Zipcode Ph one Number [facility] CLIA: [id number], [address] [place] [id number] 98 [facility] * PROTHROMBIN TIME / INR (11/29/2019 5:52 AM CDT) PROTIME PATIENT 32.5 (H) 10.1 - 12.6 Seconds [facility] LABO RATORY [facility] INR 2.9Comment: Normal INR <1.1; [facility] Warfarin Therapeutic range 2.0 [facility] to 3.0 or 2.5 to 3.5, [facility] depending upon the indications. Specimen Blood Performing Organization Address City/[facility] one Number [facility] CLIA: [id number], [address] [place], [place] [address] [facility] * CORONAVIRUS COVID-19 TESTING (11/29/2019 5:52 AM CDT) SARS-CoV-2 Not Detected Not Detected [facility] Specimen Swab - NASOPHARYNGEAL SWAB Narrative Performed At [facility] COVID-19 Assay is an isothermal nucleic acid amplification test intended [facility] for the qualitative detection of nucleic acid from SA RS-CoV-2 viral RNA in [facility] nasopharyngeal (FACTORY HELPER) specimens. It is used under Emerg ency Use Authorization CAMPUS (EUA) by FDA. The limit of detection (L OD) of the assay is 125 Genome Equivalents/mL. A positive result is indicative of the presence of SARS-CoV-2 RNA. Clinical correlation with patient history and ot her diagnostic information is necessary to determine patient infection status. A negative (Not Detected) result does n ot preclude SARS-CoV-2 infection. Clinical correlation with patient histo ry and other diagnostic information should be used in patient management de cisions. Invalid: Please collect a new specimen for repeat patient testing if clinically indicated. Performing Organization Address City/[facility] Ph one Number [facility] CLIA: [id number], [address] [place], [place] [address] [facility] documented in this encounter Visit Diagnoses Diagnosis Coronary artery disease with angina pec toris, unspecified vessel or lesion type, unspecified whether northwestern shoshone or transplanted heart - Primary Status post placement of cardiac pacema ker Cardiac pacemaker in situ documented in this encounter Administered Medications Action Date Dose Rate Site Medication Order MAR Action 11/29/2019 8:08 PM CDT 1 tablet acetaminophen-codeine (TYLENOL #3) Given 300-30 mg tablet 1 tablet 1 tablet, Oral, Q4HPRN, Starting Wed11/29/19 at 0943, Until Discontinued, Routine, Pain (scale 4-6) 11/30/2019 8:59 AM CDT 40 mg furosemide (LASIX) tablet 40 mg Given 40 mg, Oral, DAILY, First dose on Wed11/30/19 at 0900, Until Discontinued, Routine 11/30/2019 8:59 AM CDT 20 mg lisinopril (PRINIVIL,ZESTRIL) tablet 20 Given mg 20 mg, Oral, DAILY, First dose on Wed11/30/19 at 0900, Until Discontinued, Routine 11/30/2019 5:40 AM CDT 100 mg minocycline (MINOCIN) capsule 100 mg Given 100 mg, Oral, Q12HA2, 10 doses, First dose on Wed11/30/19 at 0600, Last dose o n 12/04/19 at 1800, LIBBY, Reason for Anti-Infective: Surgical Prophylaxis, Surgical Prophylaxis: Cardiothoracic, Duration of therapy: within 24 hours of surgery 11/30/2019 10:09 AM CDT 40 mg omeprazole (PRILOSEC) capsule 40 mg Given 40 mg, Oral, DAILY, First dose on Wed11/30/19 at 0900, Until Discontinued 11/29/2019 8:08 PM CDT 10 mg pravastatin (PRAVACHOL) tablet 10 mg Given 10 mg, Oral, QHS, First dose on Wed11/29/19 at 2100, Until Discontinued Action Date Dose Rate Site Medication Order MAR Action 11/29/2019 7:36 AM CDT 1 g ceFAZolin (ANCEF) injection Given Slow IV Push, TITRATE - FOR PROCEDURE USE, 1 dose, Starting Wed11/29/19 at 0736, Until Wed11/29/19 at 0736, LIBBY 11/29/2019 7:48 AM CDT 1 g ceFAZolin (ANCEF) injection Given Slow IV Push, TITRATE - FOR PROCEDURE USE, 1 dose, Starting Wed11/29/19 at 0748, Until Wed11/29/19 at 0748, LIBBY 11/29/2019 8:09 PM CDT 2 g ceFAZolin in dextrose (iso-os) (ANCEF) 2 Given gram/100 mL Piggyback 2 g 2 g (2,000 mg), IV Piggyback, ONCE, 1 dose, Wed11/29/19 at 1930, 100 mL, Reaso n for Anti-Infective: Surgical Prophylaxis, Surgical Prophylaxis: Cardiothoracic, Duration of therapy: within 24 hours of surgery 11/29/2019 7:44 AM CDT 25 mcg FENTanyl PF (SUBLIMAZE (PF)) injection Given Slow IV Push, TITRATE - FOR PROCEDURE USE, 1 dose, Starting Wed11/29/19 at 0744, Until Wed11/29/19 at 0744, Routine 11/29/2019 7:56 AM CDT 20 mL lidocaine 1% (PF) (XYLOCAINE) injection Given Infiltration, TITRATE - FOR PROCEDURE USE, 1 dose, Starting Wed11/29/19 at 0756, Until Wed11/29/19 at 0756, Routine 11/29/2019 7:44 AM CDT 1 mg midazolam (VERSED) injection Given IV Push, TITRATE - FOR PROCEDURE USE, 1 dose, Starting Wed11/29/19 at 0744, Unti l Wed11/29/19 at 0744, Routine 11/29/2019 7:55 AM CDT 1 mg midazolam (VERSED) injection Given IV Push, TITRATE - FOR PROCEDURE USE, 1 dose, Starting Wed11/29/19 at 0755, Unti l Wed11/29/19 at 0755, Routine 11/29/2019 7:58 AM CDT 250 mL NaCl 0.9% (NS) bolus infusion New Bag IV Infusion, CONTINUOUS PRN, Starting Wed11/29/19 at 0758, Until Wed11/29/19 at 0758, STAT documented in this encounter Insurance Type Payer Benefit Subscriber ID Effective Phone Address Plan / Dates Group Medicare Adv HMO [employer] [place] [employer] [id number] 2019- [place] [employer] Present CLASSIC/VA [place] documented as of this encounter
--- OUTSIDE RECORDS SUMMARY | 2020-02-23 20:59 | XMS REPORT | Continuity of Care Document ---
Author Author [facility] t Organization [facility] Address [address] [place] [address] Phone Unavailable Care Team Providers Care Food Court Team Member Name Role Phone Nadira VILLEGAS, Vasyl Attphys [...] Date/Time End Date/Time En[facility] ID Source 2019-11-29 08:13:00 2019-11-30 14:11:00 Hospital Encounter Vasyl Waddell [facility] ([facility]) [id number] 2019-11-29 08:25:00 2019-11-29 23:59:00 [facility] [id number] 2019-11-29 00:00:00 2019-11-29 00:00:00 Telephone Augie Villalta [facility] ([facility]) [id number] Results Test Description Test Time Test Comments Results Result Comments Source BREAST ULTRASOUND BILATERAL 2018-12-12 14:15:57 - BREAST ULTRASOUND BILATERALULTRASOUND OF BOTH BREASTS AND BOTH AXILLA: 12/12/2018CLINICAL: Abnormal mammogram. Comparison is made to exams dated 12/12/2018 mammogram, 11/21/2018 mammogram, 11/19/2017 mammogram, and 07/16/2016 mammogram - [facility] Real-time ultrasound of both breasts and both axilla and clinical breast exam was performed. No abnormalities were seen sonographically in either breast or either axilla. Clinical breast exam was unremarkable.IMPRESSION: NEGATIVE There is no sonographic evidence of malignancy. Resume annual screening mammography in one year. Carla Mcnamara M.D. dm/:12/12/2018 14:15:57 Entry: - 12/14/2018 11:32:20Imaging Technologist: Shana PADILLA, [facility]-letter sent: BIRADS 1-2 Combo FU Letter Ultrasound BI-RADS: 1 Negative DIAG MAMM RIGHT FARA CAD DIGITAL 2018-12-12 13:33:41 - DIAG MAMM RIGHT FARA CAD DIGITALUNILATERAL RIGHT DIGITAL DIAGNOSTIC MAMMOGRAM 3D/2D WITH CAD: 12/12/2018CLINICAL: Abnormal Mammogram. Digital breast tomosynthesis was performed in addition to routine CC and MLO views. Current mammographic images were evaluated by either a [employer] M-Vu or a [employer] ImageChecker CAD (computer aided detection system). Comparison is made to exams dated 11/21/2018 mamm ogram, 11/19/2017 mammogram, and 07/16/2016 mammogram - [facility]- . There are scattered fibroglandular tissues in the right breast. The architectural distortion in the right breast at 10 o'clock is due to a scar from a previous excisional biopsy. No other significant masses or calcifications are seen in the breast. IMPRESSION: BENIGNUltrasound pending for additional evaluation. Carla Mcnamara M.D. dm/:12/12/2018 13:33:41 Entry: - 12/14/2018 11:31:29Imaging Technologist: Nicolasa PADILLA, [facility]-Mammogram BI-RADS: 2 Benign SCR MAMM BILATERAL FARA CAD DIGITAL 2018-11-22 11:39:55 - SCR MAMM BILATERAL FARA CAD DIGITALBILATERAL DIGITAL SCREENING MAMMOGRAM 3D/2D WITH CAD: 11/21/2018CLINICAL: Asymptomatic. Digital breast tomosynthesis was performed in addition to routine CC and MLO views. Current mammographic images were evaluated by either a [employer] M-Vu or a [employer] ImageBONESUPPORTer CAD (computer aided detection system). Comparison is made to exams dated 11/19/2017 mammogram, 06/26 mammogram - [facility]-, and 05/27/2015 mammogram - Unknown [...] at this time.Ken Lynn M.D. qn/:11/22/2018 11:39:55 Salesperson Flowers: Tracy PADILLA, [facility]- letter sent: Additional Imaging Mammogram BI-RADS: 0 Indeterminate
--- NOTE | 2020-02-23 22:01 | Consultation ---
DATE OF CONSULTATION: 02/23/2020 GI Consult Note REASON FOR CONSULT: Upper GI bleeding manifesting as melena. HISTORY OF PRESENTING ILLNESS: A 74-year-old very pleasant, female, who has a history of atrial fibrillation. She is on warfarin. Recent INR drawn in the patient's primary care office. It was noted to be significantly elevated around 11.2. On further questioning, the patient stated that she is also having dark color stool. She was directed to get admitted in the hospital. Here, she was hemodynamically stable. Hemoglobin was noted 6.4 and hematocrit 20.6. She has received 6 units of FFP, and 2 units of packed red blood cell is going to be transfused. The patient otherwise denies any abdominal pain. No prior history of peptic ulcer disease. She does not use any NSAIDs on a chronic basis. The patient has never had any upper endoscopy. The patient reports no lower GI symptoms. REVIEW OF SYSTEMS: A 12-point system reviewed, symptomatology is limited as per HPI. PAST MEDICAL HISTORY: Atrial fibrillation, hypertension, type 2 diabetes, dyslipidemia, osteoporosis. PAST SURGICAL HISTORY: None documented. SOCIAL HISTORY: No smoking, alcohol, or any illicit drug use. FAMILY HISTORY: Noncontributory. ALLERGIES: NONE. HOME MEDICATIONS: 1. Alendronate. 2. Digoxin. 3. Furosemide. 4. Glyburide. 5. Lisinopril. 6. Warfarin. 7. She is currently also getting Bactrim DS for lower extremity cellulitis. Inpatient medications reviewed as per MAR, she is getting pantoprazole IV twice daily. PHYSICAL EXAMINATION: VITAL SIGNS: Temperature 97.6, pulse 112, respirations 20, blood pressure 139/76, oxygen saturation 98% on room air. GENERAL: Not in any apparent distress. Oral mucosa is moist. HEENT: Anicteric sclerae. NECK: No neck or axillary adenopathy. CVS: S1, S2. Irregularly irregular. LUNGS: Bilaterally grossly clear. ABDOMEN: Soft, nondistended, nontender. No mass or hernia. Positive bowel sounds. EXTREMITIES: Warm. Trace leg edema. LABORATORY DATA: WBC 3.34, hemoglobin 6.4, hematocrit 20.6, MCV 95.4, platelet count 211. Sodium 140, potassium 4.4, chloride 103, bicarb 28, BUN 29, creatinine 1.40, glucose 151. Liver enzymes showed a total protein 0.8, AST 19, ALT 13, alkaline phosphatase 115, and albumin is 3.5. PT, INR 96.1 and 11.20. IMPRESSION: Mucosal oozing likely from supratherapeutic INR. I do not suspect any active GI bleeding. PLAN: I agree to continue PPI, hold warfarin, repeat INR, if it is therapeutic or below therapeutic range, then we will perform upper endoscopy. Further recommendation based upon upper endoscopy findings. Santiago Fallon MD SA/GASPER /[id number] MTDD
[2020-02-24] VITALS (9 sets, daily range): BP systolic 118–137; BP diastolic 57–73
[2020-02-24] MEDS ORDERED: SODIUM CHLORIDE 0.9% 250ML 250 ML ONE ×2 (00:55→13:26)
[2020-02-24] MEDS: FUROSEMIDE INJ 10 MG/ML 2 ML VIAL IV PRN (03:51)
[2020-02-24 05:51] LABS: BASOPHILS % 0.8 % (0.0-1.0); EOSINOPHILS # (AUTO) 0.2 (0.0-0.4); EOSINOPHILS % 5.6 % (0.0-6.0); HEMATOCRIT 24.1 % (34.2-44.1); LYMPHOCYTES # (AUTO) 0.4 (1.0-3.2); LYMPHOCYTES % 12.3 % (18.0-39.1); MEAN CORPUSCULAR HEMOGLOBIN 31.7 pg (28-32); MEAN CORPUSCULAR HGB CONC 33.2 g/dL (31-35); MEAN CORPUSCULAR VOLUME 95.6 fL (81-99); MONOCYTES # (AUTO) 0.5 (0.2-0.8); MONOCYTES % 12.9 % (4.4-11.3); NEUTROPHILS # (AUTO) 2.4 (2.1-6.9); NEUTROPHILS % 68.1 % (38.7-80.0); PLATELET COUNT 169 x10e3/uL (140-360); RED BLOOD COUNT 2.52 x10e6/uL (3.6-5.1); RED CELL DISTRIBUTION WIDTH 14.7 % (11.7-14.4)
[2020-02-24 06:00] LABS: INR 1.62; PROTHROMBIN TIME 20.2 seconds (11.9-14.5)
[2020-02-24 06:42] LABS: ANION GAP 14.9 mmol/L (8-16); CALCIUM 9.3 mg/dL (8.4-10.2); CREATININE, SERUM 1.54 mg/dL (0.57-1.11); POTASSIUM 3.9 mmol/L (3.5-5.1)
--- NOTE | 2020-02-24 07:00 | NUR ---
received change of shift report from PM nurse. pt in stable condition.
[2020-02-24] MEDS: INSULIN LISPRO 100 UNIT/1 ML 3ML VIAL SQ SCH ×4 (07:30→21:30)
[2020-02-24] MEDS: DIGOXIN 0.125 MG TAB PO SCH (08:12)
[2020-02-24] MEDS: FUROSEMIDE 40 MG TAB PO SCH (08:12)
--- NOTE | 2020-02-24 08:23 | NUR ---
pt being transported to OR for EGD procedure this morning; left in stable condition.
[2020-02-24] MEDS: PANTOPRAZOLE 40 MG 10ML VIAL IV SCH (08:28)
--- NOTE | 2020-02-24 09:28 | NUR ---
pt returned from EGD; pt hemodynamically stable. per RN, Dr. Fallon states pt okay to be discharged from his standpoint and okay to resume Coumadin. called Dr. Weeks and informed him of pt's status and Dr. Fallon's impression. Desi states he is on his way to come see the patient.
[2020-02-24] MEDS: METOPROLOL TARTRATE 25 MG TAB PO SCH ×2 (11:15→17:19)
[2020-02-24] MEDS ORDERED: DIATRIZOATE MEGL/DIATRIZOA SOD 30 ML BTL PO ONE (11:23)
[2020-02-24] MEDS ORDERED: WARFARIN SOD 3 MG TAB PO ONE (11:30)
[2020-02-24] MEDS ORDERED: ACETAMINOPHEN 325 MG TAB PO ONE (12:00)
[2020-02-24] MEDS ORDERED: IRON SUCROSE 100 MG in SODIUM CHLORIDE 0.9% 100 ML 100 ML IV ONE (12:30)
--- NOTE | 2020-02-24 14:26 | Diagnostic Imaging Report ---
EXAM: CT Abdomen and Pelvis WITHOUT contrast INDICATION: Severe anemia and pain. COMPARISON: None. TECHNIQUE: Abdomen and pelvis were scanned utilizing a multidetector helical scanner from the lung base to the pubic symphysis without administration of IV contrast. Absence of intravenous contrast decreases sensitivity for detection of focal lesions and vascular pathology. Coronal and sagittal reformations were obtained. Routine protocol was performed. IV CONTRAST: None ORAL CONTRAST: None COMPLICATIONS: None RADIATION DOSE: Total DLP: 207.44 mGy*cm Estimated effective dose: (DLP x 0.015 x size factor) mSv CTDIvol has been reviewed. It is below the limits set by the Radiation Protocol Committee (RPC). Dose modulation, iterative reconstruction, and/or weight based adjustment of the mA/kV was utilized to reduce the radiation dose to as low as reasonably achievable. FINDINGS: LINES and TUBES: None. LOWER THORAX: There is small right pleural effusion. There is a pleural-based bulla in the left lower lobe (series 2 image 6). The partially imaged heart appears enlarged. HEPATOBILIARY: The liver has a nodular contour with slight caudate lobe hypertrophy. No intrahepatic or intrahepatic biliary ductal dilatation. GALLBLADDER: Surgically absent. SPLEEN: No splenomegaly. PANCREAS: No focal masses or ductal dilatation. ADRENALS: No adrenal nodules KIDNEYS/URETERS: The right kidney appears atrophic when compared to the contralateral left side. No hydronephrosis. No cystic or solid mass lesions. No stones. GI TRACT: No abnormal distention, wall thickening, or evidence of bowel obstruction. Appendix is normal. PELVIC ORGANS/BLADDER: Unremarkable. LYMPH NODES: No lymphadenopathy. VESSELS: The abdominal aorta and its major abdomen and pelvic branches have normal caliber with mild arthroscopic calcification. There are gastroesophageal varices. PERITONEUM / RETROPERITONEUM: There is small ascites that extends along the bilateral paracolic gutters into the pelvis. BONES: There is multilevel degenerative disease of the spine with no suspicious osteolytic or osteoblastic lesions. SOFT TISSUES: There is a fluid containing left inguinal hernia, likely extension of the ascites. IMPRESSION: 1. Nodular hepatic contour with slight caudate lobe hypertrophy and gastroesophageal varices. This constellation of findings are compatible with cirrhotic liver with portal hypertension. 2. Small ascites which extends into the pelvis. 3. Right pleural effusion with superimposed atelectasis. 4. Cardiomegaly. 5. Atrophic right kidney. Signed by: Jairo Obando MD on 02/24/2020 2:22 PM
--- NOTE | 2020-02-24 19:01 | NUR ---
BEDSIDE SHIFT CHANGE REPORT GIVEN TO ONCOMING NURSE. PT IN STABLE CONDITION.
--- NOTE | 2020-02-24 19:05 | NUR ---
Completed bedside shift report with morning nurse. Pt alert and oriented, lying in bed HOB 30. Denies pain at this time. Call light within reach.
[2020-02-24] MEDS ORDERED: DEXAMETHASONE SOD PHOS INJ 4 MG/ML VIAL ONE (21:39)
[2020-02-24] MEDS ORDERED: KETOROLAC TROMETHAMINE 30 MG/ML VIAL ONE (21:39)
[2020-02-24] MEDS ORDERED: SEVOFLURANE INHAL SOLN 250 ML PEN BTL ONE (21:39)
[2020-02-24] MEDS ORDERED: ROCURONIUM BROMIDE 10 MG/ML 5ML VIAL IV ONE (21:39)
[2020-02-24] MEDS ORDERED: PROPOFOL IV EMULSION 10 MG/ML 20 ML VIAL ONE (21:39)
[2020-02-24] MEDS ORDERED: ONDANSETRON HCL INJ 2MG/ML 2ML 2 MG/ML VIAL ONE (21:39)
[2020-02-24] MEDS ORDERED: LIDOCAINE HCL 2% LOCAL INJ 5 ML SDV VIAL INJ ONE (21:39)
[2020-02-25 04:49] VITALS: BP 127/69
[2020-02-25 05:59] LABS: BASOPHILS % 0.7 % (0.0-1.0); EOSINOPHILS # (AUTO) 0.2 (0.0-0.4); EOSINOPHILS % 3.3 % (0.0-6.0); HEMATOCRIT 25.8 % (34.2-44.1); HEMOGLOBIN 8.6 g/dL (12.0-16.0); LYMPHOCYTES # (AUTO) 0.5 (1.0-3.2); LYMPHOCYTES % 9.8 % (18.0-39.1); MEAN CORPUSCULAR HEMOGLOBIN 31.5 pg (28-32); MEAN CORPUSCULAR HGB CONC 33.3 g/dL (31-35); MEAN CORPUSCULAR VOLUME 94.5 fL (81-99); MONOCYTES # (AUTO) 0.6 (0.2-0.8); MONOCYTES % 13.8 % (4.4-11.3); NEUTROPHILS # (AUTO) 3.3 (2.1-6.9); PLATELET COUNT 182 x10e3/uL (140-360); RED BLOOD COUNT 2.73 x10e6/uL (3.6-5.1); RED CELL DISTRIBUTION WIDTH 14.2 % (11.7-14.4)
[2020-02-25 06:17] LABS: INR 1.58; PROTHROMBIN TIME 19.8 seconds (11.9-14.5)
[2020-02-25] MEDS ORDERED: IRON SUCROSE 100 MG in SODIUM CHLORIDE 0.9% 100 ML 100 ML IV SCH (07:00)
[2020-02-25] MEDS ORDERED: ACETAMINOPHEN 325 MG TAB PO SCH (07:00)
--- NOTE | 2020-02-25 07:03 | NUR ---
BEDSIDE SHIFT CHANGE REPORT RECEIVED FROM PM NURSE. PT IN STABLE CONDITION.
[2020-02-25] MEDS ORDERED: PANTOPRAZOLE SOD 40 MG TABEC PO SCH (07:30)
[2020-02-25] MEDS: INSULIN LISPRO 100 UNIT/1 ML 3ML VIAL SQ SCH ×2 (07:30→11:30)
[2020-02-25 08:22] VITALS: BP 130/71
[2020-02-25] MEDS: DIGOXIN 0.125 MG TAB PO SCH (09:00)
[2020-02-25] MEDS: FUROSEMIDE 40 MG TAB PO SCH (09:17)
[2020-02-25] MEDS: METOPROLOL TARTRATE 25 MG TAB PO SCH (09:20)
[2020-02-25 10:14] LABS: BAND NEUTROPHILS % (MANUAL) 3 %; EOSINOPHILS % (MANUAL) 2 % (0-7); LYMPHOCYTES % (MANUAL) 7 % (19-48); MONOCYTES % (MANUAL) 11 % (3.4-9.0); NEUTROPHILS % (MANUAL) 77 % (40-74)
[2020-02-25 10:26] VITALS: BP 130/71
[2020-02-25] MEDS ORDERED: WARFARIN SODIUM3 MG PO (11:18)
[2020-02-25] MEDS ORDERED: PANTOPRAZOLE SO40 MG PO (11:19)
[2020-02-25] MEDS ORDERED: CARAFATE1 GM/10 ML PO (11:19)
[2020-02-25] MEDS ORDERED: LOPRESSOR25 MG PO (11:20)
[2020-02-25] MEDS ORDERED: KEFLEX500 MG PO (11:21)
[2020-02-25 12:38] VITALS: BP 123/78
--- NOTE | 2020-02-25 22:15 | Discharge Summary ---
PRIMARY CARE PHYSICIAN: Dr. Molina Mccall. HEDIS SPECIALIST: Dr. Santiago Fallon MD FINAL DIAGNOSES: 1. Supratherapeutic INR associated with warfarin treatment and combination of drug interaction with Bactrim. The patient's INR was 11.2, associated with acute GI bleed with melena, low hemoglobin and hematocrit of 6.4 and 20.6. The patient is status post 6 units FFP and also vitamin K subcu along with 2 units blood transfusion. The patient's the hemoglobin and hematocrit now are 8.6 and 25.8. 2. Atrial fibrillation on anticoagulant therapy, on warfarin [address] scan abdomen and pelvis showed liver cirrhosis and portal hypertension. 4. Tachycardia secondary to atrial fibrillation, adjustment of medication. 5. Chronic kidney disease. BUN and creatinine of 33 and 1.5. SUMMARY: The patient is a 74-year-old female, came to the hospital with INR of 11.2. The patient also complained of melena. Her hemoglobin and hematocrit on admission were 6.4 and 20.6. Because of her bleeding with melena, the patient was giving subcu vitamin K along with 6 units of FFP. She did receive 2 units of blood transfusion. Her hemoglobin and hematocrit today are 8.6 and 25.8. The patient's anticoagulant therapy, INR is 1.6. She is resuming her warfarin at 3 mg daily. The patient also had other workup done. BUN and creatinine that were found to be 33 and 1.5. Sodium is 133, potassium 4.5. Her liver enzyme is normal. Iron was low at 25. The patient is status post Venofer iron infusion. The patient B12 was 985, folic acid was greater than 20, and her TSH was 1.1. The patient's sugar was 112. The patient is otherwise stable. She did have a CT scan of abdomen and pelvis that was done. She does have some nodular hepatic contour with slight caudate lobe hypertrophy and gastroesophageal varices. The finding compatible with liver cirrhosis with portal hypertension. Small ascites which extend into the pelvis. Cardiomegaly and atrophic right kidney. She had right pleural effusion with superimposed atelectasis. Her right lower extremity infection, she is started on Keflex. She has stopped the Bactrim. The patient is stable. Instructions as follows. On discharge, the patient will stop the warfarin 5 mg, alendronate and lisinopril and Bactrim. She was started on Protonix 40 mg daily, Carafate suspension 1 g before meals and bedtime, warfarin 3 mg in the evening, Lopressor 25 mg b.i.d., and Keflex 500 mg t.i.d. for 7 days. The patient will need PT/INR on Wednesday, adjustment of warfarin. She will need to follow up with Dr. Fallon in approximately 1-2 weeks for planning of colonoscopy as an outpatient. The patient is otherwise stable. All instructions given. Cardiac diet. Activity as tolerated. Medication reconciliation is done. Instructions are given. Prescription given. The patient is stable, discharged home today. MD CHENTE Rubio/GASPER /[id number]
== END 2020-02-25 12:39 | disposition home or self-care (01) | DRG 378 ==
LOC: ER 15:41 → ERHOLD 17:22 → MED/SURG2 02-23 02:03
PROVIDERS: ADMIT Internal Medicine; ATTEND Internal Medicine
PROC: 30233L1 Transfusion of Nonautologous Fresh Plasma into Peripheral Vein, Percutaneous Approach (ICD-10-PCS; 2020-02-22)
PROC: 30233N1 Transfusion of Nonautologous Red Blood Cells into Peripheral Vein, Percutaneous Approach (ICD-10-PCS; 2020-02-23)
PROC: 30233K1 Transfusion of Nonautologous Frozen Plasma into Peripheral Vein, Percutaneous Approach (ICD-10-PCS; 2020-02-23)
PROC: 0DB78ZX Excision of Stomach, Pylorus, Via Natural or Artificial Opening Endoscopic, Diagnostic (ICD-10-PCS; principal; 2020-02-24 08:00)
DX: K92.1 Melena (principal); D62 Acute posthemorrhagic anemia; D68.32 Hemorrhagic disorder due to extrinsic circulating anticoagulants; K76.6 Portal hypertension; R18.8 Other ascites; J98.11 Atelectasis; T45.515A Adverse effect of anticoagulants, initial encounter; I48.91 Unspecified atrial fibrillation; Z79.01 Long term (current) use of anticoagulants; I10 Essential (primary) hypertension; Z95.810 Presence of automatic (implantable) cardiac defibrillator; K74.60 Unspecified cirrhosis of liver; D69.6 Thrombocytopenia, unspecified; M79.89 Other specified soft tissue disorders; E11.9 Type 2 diabetes mellitus without complications; M81.0 Age-related osteoporosis without current pathological fracture; E78.5 Hyperlipidemia, unspecified; T36.8X5A Adverse effect of other systemic antibiotics, initial encounter; N18.9 Chronic kidney disease, unspecified; R00.0 Tachycardia, unspecified; I85.10 Secondary esophageal varices without bleeding; N26.1 Atrophy of kidney (terminal); K29.70 Gastritis, unspecified, without bleeding; K29.80 Duodenitis without bleeding; Z11.59 Encounter for screening for other viral diseases
CPT/HCPCS: 36415; 43235; 74176; 80048; 80053; 82607; 82746; 82948; 83540; 84443; 84466; 85025; 85610; 85730; 86850; 86900; 86920; 88305; 88312; 93005; 99284; J1100; J1756; J1885; J1940; J2001; J2405; J3430; J7050; P9016; P9017; U0002

== ENCOUNTER → 2020-06-06 | Day surgery (SDC) | payer MEDICARE ==
[2020-06-03 09:59] LABS: BASOPHILS % 0.8 % (0.0-1.0); EOSINOPHILS % 1.3 % (0.0-6.0); HEMATOCRIT 29.9 % (34.2-44.1); HEMOGLOBIN 9.4 g/dL (12.0-16.0); LYMPHOCYTES # (AUTO) 0.6 (1.0-3.2); LYMPHOCYTES % 23.2 % (18.0-39.1); MEAN CORPUSCULAR HEMOGLOBIN 29.7 pg (28-32); MEAN CORPUSCULAR HGB CONC 31.4 g/dL (31-35); MEAN CORPUSCULAR VOLUME 94.6 fL (81-99); MONOCYTES # (AUTO) 0.3 (0.2-0.8); MONOCYTES % 13.9 % (4.4-11.3); NEUTROPHILS # (AUTO) 1.4 (2.1-6.9); NEUTROPHILS % 60.4 % (38.7-80.0); PLATELET COUNT 130 x10e3/uL (140-360); RED BLOOD COUNT 3.16 x10e6/uL (3.6-5.1); RED CELL DISTRIBUTION WIDTH 15.3 % (11.7-14.4)
[2020-06-03 10:29] LABS: INR 1.82
[2020-06-03 10:30] LABS: PARTIAL THROMBOPLASTIN TIME 50.4 seconds (23.8-35.5)
[2020-06-03 10:34] LABS: ALBUMIN 4.1 g/dL (3.5-5.0); ALBUMIN/GLOBULIN RATIO 1.2 (0.8-2.0); ANION GAP 12.8 mmol/L (8-16); CALCIUM 9.3 mg/dL (8.4-10.2); CREATININE, SERUM 1.1 mg/dL (0.57-1.11); POTASSIUM 3.8 mmol/L (3.5-5.1)
[~2020-06-06] VITALS: Ht 157.5 cm; Wt 59.0 kg
[~2020-06-06] MED LIST changes: +BACTRIM DS TAB1 EACH PO; +CARAFATE1 GM/10 ML PO; +DORZOLAMIDE-TIM10 ML OP; +FERROUS SULFAT325 MG PO; +KEFLEX500 MG PO; +LOPRESSOR25 MG PO; +PANTOPRAZOLE SO40 MG PO; +VITAMIN D3 COM1 EACH; +WARFARIN SODIUM3 MG PO
[2020-06-06 09:40] VITALS: BP 120/67
== END | disposition home or self-care (01) ==
LOC: OR 06:35
PROVIDERS: ATTEND Internal Medicine Gastroenterology
DX: D64.9 Anemia, unspecified (principal); D12.3 Benign neoplasm of transverse colon; K64.8 Other hemorrhoids; I10 Essential (primary) hypertension; E11.9 Type 2 diabetes mellitus without complications; K21.9 Gastro-esophageal reflux disease without esophagitis; K74.60 Unspecified cirrhosis of liver; I25.2 Old myocardial infarction; I48.91 Unspecified atrial fibrillation; I69.351 Hemiplegia and hemiparesis following cerebral infarction affecting right dominant side; N20.0 Calculus of kidney; Z01.810 Encounter for preprocedural cardiovascular examination; Z01.812 Encounter for preprocedural laboratory examination; Z20.828 Contact with and (suspected) exposure to other viral communicable diseases; Z79.01 Long term (current) use of anticoagulants; Z95.0 Presence of cardiac pacemaker; Z80.0 Family history of malignant neoplasm of digestive organs
CPT/HCPCS: 36415; 45385; 80053; 85025; 85610; 85730; 93005; U0002; 45380

== ENCOUNTER 2020-12-20 13:18 | Emergency (ER) | payer MEDICARE ==
[~2020-12-20] VITALS: Ht 162.6 cm; Wt 62.6 kg
[2020-12-20 14:14] LABS: BASOPHILS # (AUTO) 0.1 (0.0-0.1); BASOPHILS % 1.2 % (0.0-1.0); EOSINOPHILS % 0.5 % (0.0-6.0); HEMATOCRIT 33.7 % (34.2-44.1); HEMOGLOBIN 10.7 g/dL (12.0-16.0); LYMPHOCYTES # (AUTO) 0.7 (1.0-3.2); LYMPHOCYTES % 16.3 % (18.0-39.1); MEAN CORPUSCULAR HEMOGLOBIN 30.7 pg (28-32); MEAN CORPUSCULAR HGB CONC 31.8 g/dL (31-35); MEAN CORPUSCULAR VOLUME 96.8 fL (81-99); MONOCYTES # (AUTO) 0.5 (0.2-0.8); MONOCYTES % 11.8 % (4.4-11.3); PLATELET COUNT 123 x10e3/uL (140-360); RED BLOOD COUNT 3.48 x10e6/uL (3.6-5.1); RED CELL DISTRIBUTION WIDTH 15.9 % (11.7-14.4)
[2020-12-20 14:17] LABS: INR 2.28; PROTHROMBIN TIME 25.9 seconds (11.9-14.5)
[2020-12-20 14:18] LABS: PARTIAL THROMBOPLASTIN TIME 40.1 seconds (23.8-35.5)
[2020-12-20 14:19] LABS: CLARITY,URINE CLOUDY (CLEAR); COLOR,URINE RED (YELLOW); KETONES,URINE NEGATIVE (NEGATIVE); LEUKOCYTE ESTERASE ,URINE SMALL (NEGATIVE); NITRITE,URINE NEGATIVE (NEGATIVE); PROTEIN,URINE DIPSTICK 1+ (NEGATIVE); URINE UROBILINOGEN 0.2 mg/dL (0.2 - 1)
[2020-12-20 14:25] LABS: RBC,URINE >50 /HPF (0-5); WBC,URINE (MAN) 0-5 /HPF (0-5)
[2020-12-20 14:26] LABS: ALBUMIN 4.4 g/dL (3.5-5.0); ALBUMIN/GLOBULIN RATIO 1.2 (0.8-2.0); ANION GAP 14.9 mmol/L (8-16); BACTERIA,URINE RARE /HPF; CALCIUM 9.7 mg/dL (8.4-10.2); CREATININE, SERUM 1.02 mg/dL (0.57-1.11); POTASSIUM 3.9 mmol/L (3.5-5.1)
[2020-12-20] MEDS ORDERED: SODIUM CHLORIDE 0.9% 500ML 500 ML IV ONE (15:00)
[2020-12-20] MEDS ORDERED: IOPAMIDOL 370 MG/ML 200 ML INFUS..BTL INJ ONE (15:16)
[2020-12-20] MEDS ORDERED: SODIUM CHLORIDE 0.9% 250ML 250 ML ONE (15:16)
== END 2020-12-20 17:53 | disposition home or self-care (01) ==
LOC: ER 13:27
DX: R31.9 Hematuria, unspecified (principal); Z79.01 Long term (current) use of anticoagulants; Z95.2 Presence of prosthetic heart valve; Z87.442 Personal history of urinary calculi; D64.9 Anemia, unspecified
CPT/HCPCS: 36415; 74178; 80053; 81001; 85025; 85610; 85730; 87086; 87186; 99284; J7040; J7050; Q9967

== ENCOUNTER → 2021-01-08 | Outpatient (CLI) | payer MEDICARE | LOC: NM 11:08 | PROVIDERS: ATTEND Urology | DX: N26.9 Renal sclerosis, unspecified (principal) | CPT/HCPCS: 78707; A9562 ==

== ENCOUNTER → 2021-01-15 | Outpatient (CLI) | payer MEDICARE | LOC: US 08:25 | PROVIDERS: ATTEND Internal Medicine | DX: R18.8 Other ascites (principal); K76.89 Other specified diseases of liver | CPT/HCPCS: 76705 ==